=== PATIENT | male | born 1990 | race African-American/Black ===

== ENCOUNTER 2020-09-30 18:42 | Emergency (ER) | payer SELFPAY ==
[2020-09-30 19:06] VITALS: BP 134/72; PULSE 86; TEMP 97.7; BMI 24.4
== END 2020-09-30 20:56 | disposition home or self-care (01) ==
LOC: JERFT 18:42
DX: K08.89 Other specified disorders of teeth and supporting structures (principal)
CPT/HCPCS: 99283-25